=== PATIENT | male | born 1990 | race Caucasian/White ===

== ENCOUNTER 2018-10-11 14:33 | Emergency (ER) | payer MEDICAID, OTHER ==
[~2018-10-11] VITALS: Ht 185.4 cm; Wt 79.4 kg
[2018-10-11 14:54] VITALS: BP 121/76
--- NOTE | 2018-10-11 14:58 | NUR ---
PATIENT TO THE LOBBY. NO AVAIL. BED AT THIS TIME. PATIENT WITH FAMILY. NO DISTRESS
--- NOTE | 2018-10-11 16:15 | NUR ---
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 NO BLURRY VISION AT THIS TIME, THE HEADACHES STARTS FROM THE FRONT OF THE FOREHEAD AND START RADIATING TO THE BACK OF THE HEAD. PT IS AAOX4, VSS AT THIS TIME, + JAMA ARM STRENTH, EVEN AND STEADY GAIT, BED DOWN, LOW, LOCKED, BEDRAIL UP X 1, ER MD AWARE AND NOTIFIED OF PT STATUS. PMH: NONE RX: TYLENOL
--- NOTE | 2018-10-11 17:19 | NUR ---
Patient being evaluated by physician at bedside.
[2018-10-11] MEDS ORDERED: METOCLOPRAMIDE 10 MG/2 ML INJ VIAL IM ONE (17:20)
[2018-10-11] MEDS ORDERED: KETOROLAC 60 MG/2 ML VIAL IM ONE (17:20)
--- NOTE | 2018-10-11 17:31 | NUR ---
PT TAKEN TO CT
--- NOTE | 2018-10-11 17:40 | NUR ---
pt back from ct
[2018-10-11 19:08] VITALS: BP 119/74
--- NOTE | 2018-10-11 19:08 | NUR ---
Patient discharged with v/s stable. Written and verbal after care instructions given and explained. Patient alert, oriented and verbalized understanding of instructions. Ambulatory with steady gait. All questions addressed prior to discharge. ID band removed. Patient advised to follow up with PMD. Rx of fioricet given. Patient educated on indication of medication including possible reaction and side effects. Opportunity to ask questions provided and answered.
== END 2018-10-11 19:08 | disposition home or self-care (01) ==
LOC: MED 14:33
DX: R51 Headache (principal); H53.8 Other visual disturbances
CPT/HCPCS: 70450; 96372; 99284; J1885; J2765